=== PATIENT | male | born 1945 | race Caucasian/White ===

== ENCOUNTER 2022-09-10 09:33 | Outpatient (CLI) | payer MEDICARE, OTHER ==
--- NOTE | 2022-09-10 11:54 | XRAY Report ---
PROCEDURE: Lumbar Spine 2 View INDICATIONS: ABNORMAL GOUT TECHNIQUE: 2 views of the lumbar spine were acquired. COMPARISON: None. FINDINGS: Bones: 5 [id number] vertebrae are present. Mild levoconvex curvature. Multilevel disc space shana rowing and degenerative endplate changes are seen. There is multilevel facet hypertrophy. No vertebra l body compression fractures. No suspicious bony lesions. Soft tissues: Overlying bowel gas pattern is normal. No suspicious soft tissue calcifications. Tra ce aortic atherosclerotic calcifications. IMPRESSION: Moderate to severe multilevel spondylosis. MRI could be performed for further evaluation if indicated clinically. Reviewed by: Robby Whalen MD on 09/10/2022 11:52 AM PDT Approved by: Robby Whalen MD on 09/10/2022 11:52 AM PDT Station ID: [id number]
== END 2022-09-10 09:34 | disposition home or self-care (01) ==
LOC: DI.S 09:33
PROVIDERS: ATTEND Nurse Practitioner Family
DX: M47.816 Spondylosis without myelopathy or radiculopathy, lumbar region (principal); R26.2 Difficulty in walking, not elsewhere classified

== ENCOUNTER 2023-09-01 11:21 | Emergency (ER) | payer MEDICARE, OTHER ==
--- NOTE | 2023-09-01 12:11 | ED Physician Documentation ---
PD HPI LOWER EXT INJURY - Stated complaint Stated Complaint: GLF/RT LEG PX - Chief complaint Chief Complaint: Trauma Ext - History obtained from History obtained from: Patient - History of Present Illness PD HPI LOW EXT INJURY LOCATION: Right - Additional information Additional information: He had a slip and fall yesterday hitting his right knee on the edge of the shower. It only hurts if he tries to walk on it. No other injuries other than an abrasion on the ankle and montero. He is not up-to-date on tetanus. PD PAST MEDICAL HISTORY - Past Medical History Past Medical History: Yes Cardiovascular: Hypertension, High cholesterol Respiratory: None Neuro: Peripheral neuropathy Endocrine/Autoimmune: None GI: None : None HEENT: None Psych: None Musculoskeletal: Gout Derm: None - Past Surgical History Past Surgical History: No - Present Medications Home Medications: Ambulatory Orders Medication Instructions Recorded Confirmed Ibuprofen [Motrin] 600 mg PO Q6H PRN 10/25/12 09/01/23 Multivitamin [Multi-Day Vitamins] 1 each PO DAILY 10/25/12 09/01/23 allopurinoL [Allopurinol] 100 mg PO DAILY 10/25/12 09/01/23 Rosuvastatin Calcium [Crestor] 40 mg PO DAILY 09/01/23 09/01/23 - Allergies Allergies/Adverse Reactions: Allergies Allergy/AdvReac Type Severity Reaction Status Date / Time No Known Drug Allergies Allergy Verified 09/01/23 11:38 - Social History Does the pt smoke?: No Smoking Status: Former smoker Does the pt drink ETOH?: Yes Does the pt have substance abuse?: No Substance Use and Type: CBD oil / Products - Immunizations Immunizations are current?: Yes Immunizations: TDAP >10years/unknown - POLST Patient has POLST: No PD ED PE NORMAL - Vitals Vital signs reviewed: Yes - General General: Alert and oriented X 3, No acute distress - Extremities Extremities: Other (There is a small abrasion on the montero and right ankle. No tenderness of either of those. The right knee is grossly swollen but not obviously tender but he has a lot of pain with range of motion. Ligamentous testing is intact. Negative grind testing. Positive grind testing.) - Neuro Neuro: Alert and oriented X 3 Results - Vitals Vitals: Vital Signs - 24 hr 09/01/23 11:38 Temperature 37.2 C Heart Rate 79 Respiratory 18 Rate Blood Pressure 157/87 H O2 Saturation 97 Oxygen O2 Source Room air - Rads (name of study) 4 view x-ray of the right knee showing a lot of degenerative change, no fracture. Relevant Findings:: Final report received, EMP independent interpretation of test PD Medical Decision Making - ED course ED course: 77-year-old gentleman with a right knee injury. He has some abrasions as well also tetanus was updated. No fracture on x-ray but placed a knee mobilizer and up on crutches with recommended orthopedic follow-up. He declined prescription pain medication. Departure - Departure Disposition: Home, Self Care Clinical Impression: Knee contusion Condition: Good Record reviewed to determine appropriate education?: Yes Instructions: ED Knee Pain [facility] Follow-Up: Orthopedic Care [Provider Group] Comments: As discussed, the x-ray shows pretty significant degenerative changes but no obvious fracture. If not improved you should follow-up with orthopedics in a week or 2. Return for new or worsening symptoms. Given the underlying degenerative changes you may want to follow-up with the orthopedics office sarah pruett given that she has had some chronic issues there for consideration of injections or other therapies. Forms: PCP List
[2023-09-01] MEDS: TETANUS/DIPHTHERIA/PERTUSSIS 0.5 ML SYRINGE IM ONE (12:20)
--- NOTE | 2023-09-01 12:49 | XRAY Report ---
PROCEDURE: Knee 4+V RT INDICATIONS: knee inj TECHNIQUE: 4 views of the knee(s) were acquired. COMPARISON: None. FINDINGS: Bones: No fractures or dislocations. No suspicious bony lesions. There is tricompartmental osteoa rthrosis with joint space narrowing and osteophyte formation. Changes are most prominent in the later al and patellofemoral compartments. Patellar osteophytes. Soft tissues: Moderate knee joint effusion. No suspicious soft tissue calcifications or masses. IMPRESSION: Moderate knee effusion without fracture identified. Moderate tricompartmental osteoarthrosis. Reviewed by: Manjinder Decker MD on 09/01/2023 11:48 AM [facility] Approved by: Manjinder Decker MD on 09/01/2023 11:48 AM DORA Station ID: [id number]
[2023-09-01 13:41] VITALS: BP 140/82; O2SAT 98
== END 2023-09-01 13:36 | disposition home or self-care (01) ==
LOC: ED 11:21
DX: S80.01XA Contusion of right knee, initial encounter (principal); W18.2XXA Fall in (into) shower or empty bathtub, initial encounter; M17.11 Unilateral primary osteoarthritis, right knee; Z87.891 Personal history of nicotine dependence; I10 Essential (primary) hypertension; E78.00 Pure hypercholesterolemia, unspecified; S90.511A Abrasion, right ankle, initial encounter; Z23 Encounter for immunization
CPT/HCPCS: 90471; 99283; 99284